=== PATIENT | female | born 1995 | race Caucasian/White ===

== ENCOUNTER 2017-11-03 16:34 | Emergency (ER) | payer OTHER ==
--- NOTE | 2017-11-03 17:04 | ER Document Report ---
ED Medical Screen (RME) - General Chief Complaint: Vag Bleeding, +preg <12wks Stated Complaint: BLOOD CLOTS/VAGINAL BLEEDING Time Seen by Provider: 11/03/17 16:57 Mode of Arrival: Ambulatory Information source: Patient Notes: This is a 21-year-old female 1 para 0 approximately 7 weeks who presents to the emergency room with some vaginal bleeding. Patient denies any blood clots. Patient denies any abdominal pain. Patient's blood type is O+ . TRAVEL OUTSIDE OF THE [place] IN LAST 30 DAYS: No - HPI Onset: This morning Onset/Duration: Gradual Quality of pain: No pain Severity: None Pain Level: Denies Associated Symptoms: None Exacerbated by: Denies Relieved by: Denies Similar symptoms previously: No Recently seen / treated by doctor: Yes - Related Data Smoking: Non-smoker Frequency of alcohol use: None Drug Abuse: None Allergies/Adverse Reactions: Penicillins Allergy (Verified 11/03/17 16:38) Past Medical History - General Information source: Patient - Social History Cigarette use (# per day): No Chew tobacco use (# tins/day): No Frequency of alcohol use: None Drug Abuse: None Lives with: Family Family history: None - Medical History Medical History: Negative Renal/ Medical History: Denies: Hx Peritoneal Dialysis Surgical Hx: Negative Review of Systems - Review of Systems Constitutional: denies: Chills, Fever EENT: No symptoms reported Cardiovascular: No symptoms reported Respiratory: No symptoms reported Gastrointestinal: No symptoms reported Genitourinary: No symptoms reported Female Genitourinary: See HPI Musculoskeletal: No symptoms reported Skin: No symptoms reported Hematologic/Lymphatic: No symptoms reported Neurological/Psychological: No symptoms reported Physical Exam - Vital signs Vitals: Temp Pulse Resp BP Pulse Ox 99.5 F 91 H 18 116/60 100 11/03/17 16:41 11/03/17 16:41 11/03/17 16:41 11/03/17 16:41 11/03/17 16:41 Notes: Physical exam: GENERAL: A 21-year-old female, alert and oriented 3, no distress HEAD: Atraumatic, normocephalic. EYES: Pupils equal round and reactive to light, extraocular movements intact, sclera anicteric, conjunctiva are normal. ENT: Moist mucous membranes. NECK: Normal range of motion, supple LUNGS: Breath sounds clear to auscultation bilaterally and equal. HEART: Regular rate and rhythm without murmurs, rubs or gallops. ABDOMEN: Soft, normoactive bowel sounds. No tenderness to palpation. No guarding, no rebound. EXTREMITIES: Normal range of motion, no pitting or edema. No clubbing or cyanosis. NEUROLOGICAL: Cranial nerves II through XII grossly intact. Normal speech, moving all extremities, gait normal. PSYCH: Normal mood, normal affect. Course - Vital Signs Vital signs: Temp Pulse Resp BP Pulse Ox 99.5 F 91 H 18 116/60 100 11/03/17 16:41 11/03/17 16:41 11/03/17 16:41 11/03/17 16:41 11/03/17 16:41 - Diagnostic Test Radiology reviewed: Image reviewed, Reports reviewed - Ultrasound shows a viable intrauterine . The Doctor's Discharge - Discharge Clinical Impression: Vaginal bleeding in early , Viable intrauterine Condition: Stable Disposition: HOME, SELF-CARE Additional Instructions: As we discussed, the ultrasound shows a good heartbeat and the baby is developing. Given the bleeding, I would avoid heavy lifting, no sex for 2 weeks. No aspirin or ibuprofen. Tylenol is okay for cramping. Return to the emergency room for worsening bleeding, worsening cramping, abdominal pain or any concerns are getting worse. [facility]
--- NOTE | 2017-11-03 18:39 | RADIOLOGY REPORT (SQ) ---
EXAM DESCRIPTION: U/S OB TRANSVAG W/DOPPLER COMPLETED DATE/TIME: 11/03/2017 6:25 pm REASON FOR STUDY: first trimester- vaginal bleeding COMPARISON: None. TECHNIQUE: Transvaginal static and realtime grayscale images acquired of the pelvis. Additional campbell cted spectral and color Doppler images recorded. All images stored on PACs. bHCG: Not available. CLINICAL DATES: 7 weeks 2 days LIMITATIONS: None. FINDINGS: FETUS: Living intrauterine . ULTRASOUND EGA: 7 weeks 1 day ULTRASOUND CHARLES: 06/21/2018 CRL: 1.0 cm FHR: 152 beats per minute. SUBCHORIONIC BLEED: Yes SIZE OF BLEED: 1.2 cm UTERUS: No masses. No anomalies. CERVICAL LENGTH: 2.2 cm Closed. RIGHT ADNEXA: Normal ovary with normal vascular flow. No adnexal free fluid. No adnexal masses. LEFT ADNEXA: Normal ovary with normal vascular flow. No adnexal free fluid. No adnexal masses. FREE FLUID: None. OTHER: No other significant finding. IMPRESSION: LIVING INTRAUTERINE . EGA 7 weeks 1 day Trimester of : First - 0 to 13 weeks. TECHNICAL DOCUMENTATION: JOB ID: [id number] [id number] 2010 [employer]- All Rights Reserved rev-08/23 Reading location - IP/workstation name: [employer]
[2017-11-03 19:17] VITALS: BP 110/62
== END 2017-11-03 19:13 | disposition home or self-care (01) ==
LOC: ER 16:34
DX: O20.9 Hemorrhage in early pregnancy, unspecified (principal); Z3A.00 Weeks of gestation of pregnancy not specified; Z88.0 Allergy status to penicillin
CPT/HCPCS: 76817; 93976; 99284

== ENCOUNTER 2018-06-08 19:04 | Outpatient (CLI) | payer MEDICAID, OTHER ==
[2018-06-08 19:43] LABS: APPEARANCE,URINE SLIGHTLY-CLOUDY; BILIRUBIN,URINE NEGATIVE (NEGATIVE); COLOR,URINE STRAW; GLUCOSE, URINE NEGATIVE (NEGATIVE); KETONES,URINE NEGATIVE (NEGATIVE); LEUKOCYTE ESTERASE,URINE LARGE (NEGATIVE); NITRITE,URINE NEGATIVE (NEGATIVE); PROTEIN,URINE NEGATIVE (NEGATIVE); URINE SPECIFIC GRAVITY 1.002; UROBILINOGEN,URINE NEGATIVE mg/dL (<2.0)
[2018-06-08 19:56] LABS: URINE AMPHETAMINES SCREEN NEGATIVE; URINE BARBITURATES SCREEN NEGATIVE; URINE BENZODIAZEPINES SCREEN NEGATIVE; URINE COCAINE SCREEN NEGATIVE; URINE MARIJUANA (THC) SCREEN NEGATIVE; URINE METHADONE SCREEN NEGATIVE; URINE PHENCYCLIDINE SCREEN NEGATIVE
== END 2018-06-08 20:03 | disposition home or self-care (01) ==
LOC: LC 19:04
PROVIDERS: ATTEND Student in an Organized Health Care Education/Training Program
PROC: 4A1HXCZ Monitoring of Products of Conception, Cardiac Rate, External Approach (ICD-10-PCS; principal; 2018-06-08)
DX: O47.1 False labor at or after 37 completed weeks of gestation (principal); Z3A.38 38 weeks gestation of pregnancy
CPT/HCPCS: 80307; 81001; 84112

== ENCOUNTER 2018-06-19 21:34 | Outpatient (CLI) | payer MEDICAID ==
[2018-06-19 22:35] LABS: APPEARANCE,URINE CLEAR; BILIRUBIN,URINE NEGATIVE (NEGATIVE); COLOR,URINE YELLOW; GLUCOSE, URINE NEGATIVE (NEGATIVE); KETONES,URINE NEGATIVE (NEGATIVE); LEUKOCYTE ESTERASE,URINE MODERATE (NEGATIVE); NITRITE,URINE NEGATIVE (NEGATIVE); PROTEIN,URINE NEGATIVE (NEGATIVE); URINE SPECIFIC GRAVITY 1.011; UROBILINOGEN,URINE NEGATIVE mg/dL (<2.0)
[2018-06-19 22:37] LABS: URINE AMPHETAMINES SCREEN NEGATIVE; URINE BARBITURATES SCREEN NEGATIVE; URINE BENZODIAZEPINES SCREEN NEGATIVE; URINE COCAINE SCREEN NEGATIVE; URINE MARIJUANA (THC) SCREEN NEGATIVE; URINE METHADONE SCREEN NEGATIVE; URINE PHENCYCLIDINE SCREEN NEGATIVE
--- NOTE | 2018-06-20 01:03 | Non Stress Test Report ---
Non Stress Test Datetime Report Generated by CPN: 06/20/2018 01:03 DEMOGRAPHIC Test Number: 2 EGA NST: 40.0 EGA NST: 38.3 INDICATION Indication for Study: Other Indication for Study: Ordered by Provider Indication for Study (NST) Other: Labor check VITAL SIGNS Temperature - NST: 98.5 Temperature - NST: 98.5 Pulse - NST: 99 RESP - NST: 16 RESP - NST: 16 NBPSYS NST: 111 NBPDIA NST: 59 URINE RESULTS Urine Protein, NST: Negative Urine Ketones - NST: Negative Urine Glucose - NST: Negative Urine Blood - NST: Negative MONITORING Monitor Explained: Monitor Explained; Test Explained; Patient Verbalized Understanding Monitor Explained: Monitor Explained; Test Explained; Patient Verbalized Understanding Time on Monitor: 06/19/2018 21:59 Time on Monitor: 06/08/2018 19:26 Time off Monitor: 06/19/2018 23:08 Time off Monitor: 06/08/2018 19:50 NST Duration: 69 NST Duration: 24 NST INTERVENTIONS NST Interventions: PO Hydration NST Interventions: None Physician Notified NST: DrSamia Bell Physician Notified NST: Dr. Lowe BABY A: [id number] BABY A Movement : Present Movement : Present Contraction Frequency : 3-8 Contraction Frequency : 4-5 FHR Baseline : 135 FHR Baseline : 130 Accelerations : 15X15 Accelerations : 15X15 Decelerations : None Decelerations : None Variability : Moderate 6-25bpm Variability : Moderate 6-25bpm NST Review: Does Not Meet Criteria for Reactive NST NST Review and Verified By : Lenore VACAT Results: Reactive NST Results: Reactive NST REPORT Report Trigger: Send Report
== END 2018-06-19 23:23 | disposition home or self-care (01) ==
LOC: LC 21:34
PROVIDERS: ATTEND Obstetrics & Gynecology
PROC: 4A1HXCZ Monitoring of Products of Conception, Cardiac Rate, External Approach (ICD-10-PCS; principal; 2018-06-19)
DX: Z34.93 Encounter for supervision of normal pregnancy, unspecified, third trimester (principal)
CPT/HCPCS: 59025; 80307; 81005

== ENCOUNTER 2018-06-20 04:00 | Inpatient (IN) | payer OTHER, MEDICAID ==
[2018-06-20] MEDS ORDERED: RINGERS SOLUTION,LACTATED 1,000 ML IV PRN (06:09)
[2018-06-20] MEDS ORDERED: OXYTOCIN/NORMAL SALINE 20 UNIT/1,000 ML RTUINJ ONE (06:18)
[2018-06-20] MEDS ORDERED: LIDOCAINE 1% INJ-PF (10 MG/ML) 30 ML SDV ONE (06:18)
[2018-06-20] MEDS ORDERED: MISOPROSTOL 0.2 MG TABLET ONE (06:18)
[2018-06-20] MEDS ORDERED: VANCOMYCIN HCL INJ 1000 MG VIAL ONE (06:18)
[2018-06-20] MEDS ORDERED: VANCOMYCIN HCL 1,000 MG in DEXTROSE 5%-WATER 250 ML IV ONE ×4 (06:30)
[2018-06-20 06:54] LABS: ABSOLUTE BASOPHILS # (AUTO) 0.1 10^3/uL (0.0-0.2); ABSOLUTE EOSINOPHILS # (AUTO) 0.1 10^3/uL (0.0-0.6); ABSOLUTE LYMPHOCYTES (AUTO) 1.4 10^3/uL (0.5-4.7); ABSOLUTE MONOCYTES (AUTO) 1.2 10^3/uL (0.1-1.4); ABSOLUTE NEUT (AUTO) 8.5 10^3/uL (1.7-8.2); BASOPHILS % (AUTO) 0.6 % (0-2); EOSINOPHILS % (AUTO) 0.5 % (0-6); HEMATOCRIT 32.6 % (36.0-47.0); LYMPHOCYTES % (AUTO) 12.4 % (13-45); MEAN CORPUSCULAR HEMOGLOBIN 24.6 pg (27.0-33.4); MEAN CORPUSCULAR HGB CONC 33.6 g/dL (32.0-36.0); MEAN CORPUSCULAR VOLUME 73 fl (80-97); MONOCYTES % (AUTO) 10.6 % (3-13); PLATELET COUNT 167 10^3/uL (150-450); RED BLOOD COUNT 4.45 10^6/uL (3.72-5.28); RED CELL DISTRIBUTION WIDTH 16.1 % (11.5-14.0); SEGMENTED NEUTROPHILS % (AUTO) 75.9 % (42-78); TOTAL CELLS COUNTED % (AUTO) 100 %; WHITE BLOOD COUNT 11.2 10^3/uL (4.0-10.5)
[2018-06-20] MEDS ORDERED: PROMETHAZINE HCL INJ 25 MG/1 ML VIAL IV ONE (07:23)
[2018-06-20] MEDS ORDERED: PROMETHAZINE HCL INJ 25 MG/1 ML VIAL ONE (07:26)
--- NOTE | 2018-06-20 07:37 | Admission Physical ---
Datetime Report Generated by CPN: 06/20/2018 07:37 CURRENT ADMISSION Chief Complaint: Uterine Contractions Indication for Induction: Post Dates Admit Impression : Term, Intrauterine ; No Active Labor Admit Impression- Other: Not active labor but made cervical change Admit Plan: Admit to Unit; Initiate Labor Protocol ALLERGIES Medication Allergies: Yes Medication Allergies: Penicillins/SV (06/19/2018); latex/NY (06/19/2018) Latex: Latex Allergies Food Allergies: Peanut OBSTETRICAL HISTORY EDC: 06/19/2018 00:00 : 1 Para: 0 Term: 0 : 0 SAB: 0 IAB: 0 Ectopic: 0 Livin Cesareans: 0 VBACs: 0 Multiple Births: 0 Gestational Diabetes: No Rh Sensitization: No Incompetent Cervix: No ELIDIA: No Infertility: No ART Treatment: No Uterine Anomaly: No IUGR: No Hx Previous C/S: No Macrosomia: No Hx Loss/Stillborn: No PIH: No Hx : No Placenta Previa/Abruption: No Depression/PP Depression: No PTL/PROM: No Post Hemorrhage: No Current Procedures: Ultrasound; NST Obstetrical History Comments: G1: current SEE RECORDS Alcohol: No Marijuana : No Cocaine: No Other Illicit Drugs: No Cigarettes: Never Smoker. [id number] MEDICAL HISTORY Diabetes: No Blood Transfusion: No Pulmonary Disease (Asthma, TB): No Breast Disease: No Hypertension: No Video System Repairer Surgery: No Heart Disease: No Hosp/Surgery: Yes Autoimmune Disorder: No Anesthetic Complications: No Kidney Disease: No Abnormal Pap Smear: No Neuro/Epilepsy: No Psychiatric Disorders: No Other Medical Diseases: No Hepatitis/Liver Disease: No Significant Family History: No Varicosities/Phlebitis: No Trauma/Violence : No Thyroid Dysfunction: No Medical History Comments: 2018 - Removal and biopsy of fibroadenoma INFECTIOUS HISTORY Gonorrhea: No Genital Herpes: No Chlamydia: Yes Tuberculosis: No Syphilis: No Hepatitis: No HIV/AIDS Exposure: No Rash or Viral Illness: No HPV: No Infectious History Comments: chlamydia 2017 test to cure PHYSICAL EXAM General: Normal HEENT: Normal Neurologic: Normal Thyroid: Normal Heart: Normal Lungs: Normal Breast: Normal Back: Normal Abdomen: Normal Genitourinary Exam: Normal Extremities: Normal DTRs: Normal Pelvic Type: Adequate Vital Signs: Reviewed; Within Normal Limits VAGINAL EXAM Dilatation: 2 Effacement: 50 Station: -1 Contraction Comments: q 2-3 min MEMBRANES Membranes: Intact FETUS A EGA: 40.1 Monitoring: External US FHR- Baseline: 120s Variability: Moderate 6-25bpm Accelerations: 15X15 Decelerations: None FHR Category: Category I Admit Comment: Pt was 1 cm upon arrival and changed to 2 cm; GBS Positive and Clindamycin resistant. Will start Vancomycin 1g q 12 hr PLANS FOR LABOR AND DELIVERY Labor and Delivery: None Pain Management: Natural; Epidural Other Pain Management Plans: Pt prefers to have natural delivery, but is open to epidural Feeding Preference: Breast Benefit of Breast Feed Discussed: Yes Circumcision: Yes INFORMED CONSENT Signature: with User ID: [email or web address]
[2018-06-20 09:31] LABS: URINE AMPHETAMINES SCREEN NEGATIVE; URINE BARBITURATES SCREEN NEGATIVE; URINE BENZODIAZEPINES SCREEN NEGATIVE; URINE COCAINE SCREEN NEGATIVE; URINE MARIJUANA (THC) SCREEN NEGATIVE; URINE METHADONE SCREEN NEGATIVE; URINE PHENCYCLIDINE SCREEN NEGATIVE
[2018-06-20] MEDS ORDERED: NALBUPHINE HCL INJ 10 MG/1 ML AMPULE ONE (09:31)
[2018-06-20] MEDS ORDERED: NALBUPHINE HCL INJ 10 MG/1 ML AMPULE INJ ONE (10:00)
[2018-06-20] MEDS ORDERED: PHENYLEPHRINE HCL INJ/PF 10 MG/1 ML SDV ONE (13:34)
[2018-06-20] MEDS ORDERED: FENTANYL CITRATE INJ/PF 100 MCG/2 ML AMPUL ONE (13:34)
[2018-06-20] MEDS ORDERED: EPHEDRINE SULFATE INJ 50 MG/1 ML AMPULE ONE (13:34)
[2018-06-20] MEDS ORDERED: LIDOCAINE 1.5%/EPINEPHRINE INJ 5 ML AMP ONE (13:35)
[2018-06-20] MEDS ORDERED: BUPIVACAINE HCL 0.25 % INJ/PF (2.5 MG/1 ML) 30 ML VIAL ONE (13:35)
[2018-06-20] MEDS ORDERED: FENTANYL/BUPIVACAINE/NS/PF 300 MCG/150 ML RTUINJ EPI ONE (13:35)
[2018-06-20] MEDS ORDERED: VANCOMYCIN HCL 1,000 MG in DEXTROSE 5%-WATER 250 ML IV SCH ×2 (18:00→19:00)
[2018-06-20] MEDS ORDERED: VANCOMYCIN HCL INJ 1000 MG VIAL IV SCH (18:00)
[2018-06-20] MEDS ORDERED: ACETAMINOPHEN 325 MG TABLET ONE (19:13)
[2018-06-20] MEDS ORDERED: PROMETHAZINE HCL 25 MG SUPP.RECT PR PRN (22:21)
[2018-06-20] MEDS ORDERED: MAGNESIUM HYDROXIDE SUSP 30 ML UDCUP PO PRN (22:21)
[2018-06-20] MEDS ORDERED: DIBUCAINE 1% OINTMENT 56 GM TP PRN (22:21)
[2018-06-20] MEDS ORDERED: PROMETHAZINE HCL 25 MG TABLET PO PRN (22:21)
[2018-06-20] MEDS ORDERED: ZOLPIDEM TARTRATE 5 MG TABLET PO PRN (22:21)
[2018-06-20] MEDS ORDERED: OXYTOCIN/NORMAL SALINE 20 UNIT/1,000 ML RTUINJ IV PRN (22:21)
[2018-06-20] MEDS ORDERED: PSEUDOEPHEDRINE HCL 30 MG TABLET PO PRN (22:21)
[2018-06-20] MEDS ORDERED: ACETAMINOPHEN 650 MG SUPP.RECT PR PRN (22:21)
[2018-06-20] MEDS ORDERED: DIPH/PERTUSS(ACELL)/TETANUS VAC/PF 0.5 ML SYR (>=10YO) IM PRN (22:21)
[2018-06-20] MEDS ORDERED: DIPHENHYDRAMINE HCL 25 MG CAPSULE PO PRN (22:21)
[2018-06-20] MEDS ORDERED: MEASLES,MUMPS&RUBELLA VACC/PF 0.5 ML VIAL SUBCUT PRN (22:21)
[2018-06-20] MEDS ORDERED: BENZOCAINE/MENTHOL AEROSOL SPRAY 56 ML TOP PRN (22:21)
[2018-06-20] MEDS ORDERED: GLYCERIN/WITCH HAZEL LEAF 1 EACH MED..PAD TP PRN (22:21)
[2018-06-20] MEDS ORDERED: PROMETHAZINE HCL INJ 25 MG/1 ML VIAL IV PRN (22:21)
[2018-06-20] MEDS ORDERED: NA PHOS,M-B/NA PHOS,DI-BA (ADULT) 133 ML ENEMA PR PRN (22:21)
[2018-06-20] MEDS ORDERED: IBUPROFEN 800 MG TABLET ONE (22:37)
--- NOTE | 2018-06-21 00:25 | Delivery Summary ---
Del Sum A-C Datetime Report Generated by CPN: 06/21/2018 00:25 DELIVERY PERSONNEL DELIVERY PERSONNEL: [id number] Delivery Doctor:: Bienvenido Hanna MD Labor and Delivery Nurse:: Bisi Jean RNtest man Nurse:: Sandy Moore RN Nursery Nurse:: Anne Hooper RN Engine Designer/HAND STAMPER: [facility] Additional Personnel: : Dahiana Braun RN MATERNAL INFORMATION Delivery Anesthesia: Epidural Medications After Delivery: Pitocin Bolus-Please Comment Meds After Delivery Comment: pitocin 20 units in 1000 ml NS Maternal Complications: None LABOR SUMMARY EDC: 06/19/2018 00:00 No. Babies in Womb: 0 Attempted: No Labor Anesthesia: Epidural LABOR INFORMATION Reason for Induction: Not Applicable Onset of Labor: 06/20/2018 13:13 Complete Dilatation: 06/20/2018 20:27 Oxytocin: N/A Group B Beta Strep: Positive Antibiotics # of Doses: 2 Antibiotics Time of Last Dose: 1830 Name of Antibiotic Given: Vancomycin Steroids Given: None Reason Steroids Not Administered: Not Applicable MEMBRANES Membranes Rupture Method: Artificial Rupture of Membranes: 06/20/2018 15:15 Length of Rupture (hr): 6.87 Amniotic Fluid Color: Moderate Meconium Amniotic Fluid Amount: Moderate Amniotic Fluid Odor: Normal STAGES OF LABOR Stage 1 hr: 7 Stage 1 min: 14 Stage 2 hr: 1 Stage 2 min: 40 Stage 3 hr: 0 Stage 3 min: 4 Total Time in Labor hr: 8 Total Time in Labor min: 58 VAGINAL DELIVERY Episiotomy: None Laceration #1: Vaginal Laceration Extension #1: N/A Laceration Repair: Yes Laceration Repair Note: 1 figure of eight stitch for vaginal repair Sponge Count Correct: N/A Sharps Count Correct: N/A CSECTION DELIVERY Primary Indication: N/A Secondary Indication: N/A CSection Incidence: N/A Labor: N/A Elective: N/A CSection Incision: N/A BABY A INFORMATION Delivery Date/Time: 06/20/2018 22:07 Method of Delivery: Vaginal Born in Route : No : N/A Forceps: N/A Vacuum Extraction: N/A Shoulder Dystocia : No PRESENTATION/POSITION BABY A Presentation: Cephalic Cephalic Presentation: Vertex Vertex Position: occiput anterior Breech Presentation: N/A PLACENTA INFORMATION BABY A Placenta Delivery Time : 06/20/2018 22:11 Placenta Method of Delivery: Spontaneous Placenta Status: Delivered SCORES BABY A Heart Rate 1 min: >100 bpm Resp Effort 1 min: Good Cry Reflex Irritability 1 min: Cough or Sneeze or Pulls Away Muscle Tone 1 min: Active Motion Color 1 min: Blue/Pale Resuscitation Effort 1 min: Tactile Stimulation SCORE 1 MIN: 8 Heart Rate 5 min: >100 bpm Resp Effort 5 min: Good Cry Reflex Irritability 5 min: Cough or Sneeze or Pulls Away Muscle Tone 5 min: Active Motion Color 5 min: Body Zap, Extremities Blue Resuscitation Effort 5 min: Tactile Stimulation SCORE 5 MIN: 9 INFANT INFORMATION BABY A Gestational Age at Delivery: 40.1 Gestational Status: Full Term- 39- 40.6 Weeks Infant Outcome : Liveborn Condition : Stable Infant Sex: Male IDENTIFICATION BABY A Infant Verification Date/Time: 06/20/2018 22:29 ID Band Number: [id number] Mother's Name Verified: Yes Infant RN Verifying Infant: MSamia Jean RN, M. Kaiayak RN WEIGHT/LENGTH BABY A Birthweight (gm): 4042 Infant Weight (lb): 8 Infant Weight (oz): 15 Length (in): 19.50 Infant Length (cm): 49.53 CORD INFORMATION BABY A No. Cord Vessels: 3 Nuchal Cord : N/A Cord Blood Taken: Yes-For Eval (Mom's Blood Type - or O+) Suction: Mouth; Nose ASSESSMENT BABY A Complications: Meconium Physical Findings at Delivery: Within Normal Limits Infant Respirations: Appears Normal Skin to Skin: Yes Hospital Medical Assistant/ALS Called : No Care By: Anne Bactat, RN Transferred To: Remains with Mother BABY B INFORMATION : N/A SIGNATURES Signature: with User ID: [email or web address]
[2018-06-21] MEDS: IBUPROFEN 800 MG TABLET PO SCH ×3 (05:35→21:04)
[2018-06-21 08:13] LABS: HEMATOCRIT 26.6 % (36.0-47.0); MEAN CORPUSCULAR HEMOGLOBIN 24.8 pg (27.0-33.4); MEAN CORPUSCULAR HGB CONC 33.4 g/dL (32.0-36.0); MEAN CORPUSCULAR VOLUME 74 fl (80-97); PLATELET COUNT 162 10^3/uL (150-450); RED BLOOD COUNT 3.58 10^6/uL (3.72-5.28); RED CELL DISTRIBUTION WIDTH 16.1 % (11.5-14.0); WHITE BLOOD COUNT 15.6 10^3/uL (4.0-10.5)
[2018-06-21 08:15] LABS: HEMOGLOBIN 8.9 g/dL (12.0-15.5)
[2018-06-21] MEDS: DOCUSATE SODIUM 100 MG CAPSULE PO SCH ×2 (09:19→17:28)
[2018-06-21] MEDS: FERROUS SULFATE 325 MG TABLET PO SCH ×2 (09:19→17:28)
[2018-06-21] MEDS: FAMOTIDINE 20 MG TABLET PO SCH ×2 (09:19→21:05)
[2018-06-21] MEDS: PRENATAL VITAMIN W DHA CAPSULE PO SCH (09:19)
[2018-06-21] MEDS: SENNOSIDES/DOCUSATE 8.6-50 MG 1 EACH TABLET PO SCH (09:20)
--- NOTE | 2018-06-21 11:07 | PDOC PROGRESS REPORT ---
Subjective-OB Progress Note for:: 06/21/18 Subjective: reports bleeding slowing, pain controlled with current meds. denies needs. Physical Exam (OB) Vital Signs: Temp Pulse Resp BP Pulse Ox 97.6 F 84 16 108/61 98 06/21/18 07:46 06/21/18 07:46 06/21/18 07:46 06/21/18 07:46 06/21/18 07:46 Intake & Output 06/20/18 06/21/18 06/22/18 06:59 06:59 06:59 Intake Total 250 550 Balance 250 550 Weight 79.6 kg - Abdomen Description: Soft, Round Fundal Description: Firm Fundal Height: u/u - u/2 - Abdominal Distension: No distension Tenderness: Nontender - Extremities Lower extremities: Neha's sign - neg Calf: Normal, Nontender Objective-Diagnostic Laboratory: 06/21/18 07:29 06/21/18 07:29 WBC 15.6 H RBC 3.58 L Hgb 8.9 L D Hct 26.6 L MCV 74 L MCH 24.8 L MCHC 33.4 RDW 16.1 H Plt Count 162 Assessment and Plan(PN) - Assessment and Plan (1) Active labor at term Is this a current diagnosis for this admission?: Yes (2) Normal vaginal delivery Is this a current diagnosis for this admission?: Yes (3) Obstetrical laceration, first degree Is this a current diagnosis for this admission?: Yes - Time Spent with Patient Time with patient: Less than 15 minutes Medications reviewed and adjusted accordingly: Yes - Disposition Anticipated Discharge: Home Within: within 24 hours
[2018-06-21] MEDS: ACETAMINOPHEN WITH CODEINE #3 TABLET PO PRN (11:11)
[2018-06-21 20:53] VITALS: BP 114/55
[2018-06-22] MEDS: IBUPROFEN 800 MG TABLET PO SCH ×2 (06:44→14:27)
--- NOTE | 2018-06-22 09:49 | PDOC DISCHARGE SUMMARY ---
Final Diagnosis Discharge Date: 06/22/18 - Final Diagnosis (1) Normal vaginal delivery Is this a current diagnosis for this admission?: Yes (2) Active labor at term Is this a current diagnosis for this admission?: Yes (3) Obstetrical laceration, first degree Is this a current diagnosis for this admission?: Yes Discharge Data - Discharge Medication Prescriptions: Ibuprofen [Motrin 800 mg Tablet] 800 mg PO Q8HP PRN #60 tablet PRN Reason: Home Medications: Vit/Iron Fum/Folic AC [ Tablet] 1 each PO DAILY 11/03/17 Ferrous Sulfate [Feosol 325 mg Tablet] 325 mg PO DAILY #0 tablet 06/22/18 Ibuprofen [Motrin 800 mg Tablet] 800 mg PO Q8HP PRN #60 tablet 06/22/18 Reason(s) for Admission: Induction of Labor Procedures: NST Intrapartum Procedure(s): Spontaneous Vaginal Delivery Complication(s): Laceration-Vaginal Laceration-Degree: 1st - Diagnosis Test Laboratory: Temp Pulse Resp BP Pulse Ox 98.1 F 88 17 114/55 L 100 06/21/18 19:21 06/21/18 19:21 06/21/18 19:21 06/21/18 19:21 06/21/18 19:21 06/20/18 06/20/18 06/21/18 06:36 08:59 07:29 RBC 4.45 3.58 L Hgb 11.0 L 8.9 L D Hct 32.6 L 26.6 L Urine Opiates Screen NEGATIVE - Discharge information/Instructions Discharge Activity: Balance Activity w/Rest, Pelvic Rest Discharge Diet: Regular Disposition: HOME, SELF-CARE Follow up with: [facility] in: 4, Weeks
[2018-06-22] MEDS: DOCUSATE SODIUM 100 MG CAPSULE PO SCH ×2 (10:04→17:45)
[2018-06-22] MEDS: FERROUS SULFATE 325 MG TABLET PO SCH ×2 (10:04→17:45)
[2018-06-22] MEDS: SENNOSIDES/DOCUSATE 8.6-50 MG 1 EACH TABLET PO SCH (10:04)
[2018-06-22] MEDS: PRENATAL VITAMIN W DHA CAPSULE PO SCH (10:06)
[2018-06-22] MEDS: FAMOTIDINE 20 MG TABLET PO SCH (10:06)
[2018-06-22] MEDS: ACETAMINOPHEN WITH CODEINE #3 TABLET PO PRN (10:38)
[2018-06-22] MEDS ORDERED: DIPH/PERTUSS(ACELL)/TETANUS VAC/PF 0.5 ML SYR (>=10YO) IM ONE (17:15)
== END 2018-06-22 18:10 | disposition home or self-care (01) | DRG 807 ==
LOC: LC 04:00 → LR 05:57 → 2S 06-21 00:46
PROVIDERS: ADMIT Obstetrics & Gynecology Gynecology; ATTEND Obstetrics & Gynecology Gynecology
PROC: 10E0XZZ Delivery of Products of Conception, External Approach (ICD-10-PCS; principal; 2018-06-20)
PROC: 0HQ9XZZ Repair Perineum Skin, External Approach (ICD-10-PCS; 2018-06-20)
PROC: 3E0234Z Introduction of Serum, Toxoid and Vaccine into Muscle, Percutaneous Approach (ICD-10-PCS; 2018-06-22)
DX: O48.0 Post-term pregnancy (principal); Z37.0 Single live birth; O99.824 Streptococcus B carrier state complicating childbirth; O77.0 Labor and delivery complicated by meconium in amniotic fluid; O70.0 First degree perineal laceration during delivery; Z3A.40 40 weeks gestation of pregnancy; Z23 Encounter for immunization
CPT/HCPCS: 36415; 59025; 80307; 85025; 85027; 86592; 86850; 86900; 86901; 90715; 94760; J2300; J2370; J2550; J2590; J3010; J3370; J3490; J7060